=== PATIENT | female | born 1995 | race African-American/Black ===

== ENCOUNTER 2017-09-10 15:15 | Emergency (ER) | payer SELFPAY ==
[~2017-09-10] VITALS: Ht 157.5 cm; Wt 48.9 kg
[2017-09-10 15:58] LABS: HEMATOCRIT 40.6 % (36.0-46.0); HEMOGLOBIN 13.4 G/DL (11.9-15.5); MCV 84.8 FL (83-99); PLATELET COUNT 257 K/uL (156-360); RBC DIS.WIDTH-CV 13.2 % (11.8-14.6); RBC DIS.WIDTH-SD 41.1 % (39-53); RED BLOOD COUNT 4.79 M/uL (3.80-5.20); WHITE BLOOD COUNT 5.6 K/uL (4.1-10.2)
[2017-09-10 16:11] LABS: ALBUMIN 4.4 g/dL (3.2-4.8)
[2017-09-10 16:12] LABS: CHLORIDE 105 mEq/L (99-109); SODIUM 139 mEq/L (136-147)
[2017-09-10 16:14] LABS: GLUCOSE 90 mg/dL (70-99); TOTAL PROTEIN 7.9 g/dL (6.4-8.3)
[2017-09-10 16:16] LABS: TOTAL BILIRUBIN 0.3 mg/dL (0.0-1.0)
[2017-09-10 16:17] LABS: ALKALINE PHOSPHATASE 63 IU/L (3-129)
[2017-09-10 16:18] LABS: CREATININE 0.8 mg/dL (0.6-1.3)
[2017-09-10 16:19] LABS: AST (GOT) 19 IU/L (2-34); UREA NITROGEN (BUN) 7 mg/dL (9-23)
[2017-09-10 16:20] LABS: ALT (GPT) 12 IU/L (3-49)
[2017-09-10 16:23] LABS: GFR ESTIMATE (CALCULATED) > 59 mL/min/
[2017-09-10 16:27] LABS: QUANTITATIVE HCG 7.5 MIU/ML
[2017-09-10 17:40] LABS: APPEARANCE SL.HAZY ((CLEAR)); BILIRUBIN NEGATIVE; BLOOD LARGE; COLOR YELLOW ((YELLOW)); GLUCOSE (STRIP) NEGATIVE; KETONES NEGATIVE; LEUKOCYTES NEGATIVE; NITRITE NEGATIVE; PROTEIN (STRIP) NEGATIVE; SPECIFIC GRAVITY 1.015 (1.000-1.030); UROBILINOGEN 0.2 MG/DL (0.2-1.0)
[2017-09-10 17:48] LABS: BACTERIA NONE SEEN /HPF; EPITHELIAL CELLS RARE /HPF; HYALINE CASTS 0-5 /LPF; MUCUS TRACE /LPF; RED BLOOD CELLS TNTC /HPF (0-5); UCUL ADDED? YES; WHITE BLOOD CELLS 0-5 /HPF (0-5)
[2017-09-10 20:45] VITALS: BP 117/79
== END 2017-09-10 20:46 | disposition home or self-care (01) ==
LOC: EME 15:15
DX: N93.9 Abnormal uterine and vaginal bleeding, unspecified (principal); Z86.69 Personal history of other diseases of the nervous system and sense organs
CPT/HCPCS: 76801; 80053; 81003; 84702; 85027; 87086; 99281; 99283